=== PATIENT | female | born 1995 | race Hispanic/Latino ===

== ENCOUNTER 2019-03-13 23:47 | Emergency (ER) | payer OTHER ==
[2019-03-14 01:01] LABS: Urine Bacteria <20 /HPF (<20); Urine Culture Reflex Order NOT NEEDED; Urine RBC NONE SEEN /HPF (NONE SEEN)
[2019-03-14 01:01] LABS: Urine Blood NEGATIVE (NEG); Urine Glucose NEGATIVE (NEG); Urine Specific Gravity >1.030 (1.005-1.030)
[2019-03-14 01:02] LABS: Urine Protein NEGATIVE (NEG); Urine pH 5.5 (5.0-7.0)
[2019-03-14] MEDS ORDERED: KETOROLAC 30 MG/ML INJ ONE (01:07)
--- NOTE | 2019-03-14 03:24 | ER ---
Nurse's Notes [facility] Name: Yuki Lopez Age: 23 yrs Sex: Female : 1995 Arrival Date: 03/13/2019 Time: 23:50 Bed 5 Private MD: Diagnosis: Other abdominal pain-R FLANK PAIN Presentation: 03/13 23:59 Presenting complaint: Patient states: R flank pain radiating to right groin that began lp1 suddenly about an hour and a half ago; States pain comes and goes, nausea; Denies any pain with urination. Transition of care: patient was not received from another setting of care. Onset of symptoms was March 13, 2019 at 22:30. Risk Assessment: Do you want to hurt yourself or someone else? Patient reports no desire to harm self or others. Initial Sepsis Screen: Does the patient meet any 2 criteria? No. Patient's initial sepsis screen is negative. Does the patient have a suspected source of infection? No. Patient's initial sepsis screen is negative. Care prior to arrival: None. 23:59 Method Of Arrival: Ambulatory lp1 23:59 Acuity: ARISTEO 3 lp1 [employer]: 03/14 00:01 LMP 01/20/2019 lp1 Historical: - Allergies: 00:02 No Known Allergies; lp1 - Home Meds: 00:02 None [Active]; lp1 - PMHx: 00:02 Anemia; lp1 - PSHx: 00:02 ; lp1 - Immunization history:: Adult Immunizations up to date. - Social history:: Smoking status: Patient/guardian denies using tobacco. - Ebola Screening: : No symptoms or risks identified at this time. Screenin:03 Abuse screen: Denies threats or abuse. Denies injuries from another. Nutritional lp1 screening: No deficits noted. Tuberculosis screening: No symptoms or risk factors identified. Fall Risk None identified. Assessment: 00:02 General: Appears in no apparent distress. Behavior is calm. Pain: Complains of pain in lp1 right low back Pain radiates to groin and right femoral area Pain currently is 7 out of 10 on a pain scale. Quality of pain is described as sharp. Neuro: Level of Consciousness is awake, alert, obeys commands, Oriented to person, place, time, situation. Cardiovascular: Patient's skin is warm and dry. Respiratory: Respiratory effort is even, unlabored. GI: Abdomen is non-distended, Bowel sounds present X 4 quads. Abd is soft and non tender X 4 quads. : Reports pain in right flank(s). EENT: No signs and/or symptoms were reported regarding the EENT system. Derm: Skin is pink, warm \T\ dry. Musculoskeletal: No deficits noted. 01:00 Reassessment: Patient returned from CT at this time. lp1 02:00 Reassessment: Patient appears in no apparent distress at this time. Patient and/or lp1 family updated on plan of care and expected duration. Pain level reassessed. Patient is alert, oriented x 3, equal unlabored respirations, skin warm/dry/pink. Vital Signs: 00:01 BP 115 / 86; Pulse 116; Resp 18; Temp 97.9(O); Pulse Ox 99% on R/A; Weight 108.86 kg; lp1 Height 5 ft. 8 in. (172.72 cm); Pain 7/10; 01:11 BP 102 / 67; Pulse 107; Resp 18; Pulse Ox 100% on R/A; lp1 02:30 BP 100 / 68; Pulse 94; Resp 16; Pulse Ox 100% on R/A; lp1 00:01 Body Mass Index 36.49 (108.86 kg, 172.72 cm) lp1 ED Course: 03/13 23:50 Patient arrived in ED. cl3 23:59 Margo Saavedra, RN is Primary Nurse. lp1 03/14 00:01 Triage completed. lp1 00:01 Arm band placed on left wrist. lp1 00:04 Patient has correct armband on for positive identification. lp1 00:12 Olman Shipley MD is Attending Physician. 03:28 No provider procedures requiring assistance completed. Patient did not have IV access lp1 during this emergency room visit. 09:05 CT Stone Protocol In Process Unspecified. EDMS Administered Medications: 01:10 Drug: TORadol 30 mg Route: IM; Site: right deltoid; lp1 02:00 Follow up: Response: Pain is decreased lp1 Outcome: 03:22 Discharge ordered by . gs 03:28 Discharged to home ambulatory, with significant other. lp1 03:28 Condition: good 03:28 Discharge instructions given to patient, Instructed on discharge instructions, follow up and referral plans. Demonstrated understanding of instructions, follow-up care. 03:30 Patient left the ED. lp1 Signatures: Dispatcher [employer] Margo Goodrich RN RN lp1 Olman Shipley MD MD gs Lewis, Charde cl3
--- NOTE | 2019-03-14 03:25 | EDPHYS ---
Physician Documentation [facility] Name: Yuki Lopez Age: 23 yrs Sex: Female : 1995 Arrival Date: 03/13/2019 Time: 23:50 Bed 5 Private MD: ED Physician Olman Shipley HPI: 03/14 03:08 This 23 yrs old Female presents to ER via Ambulatory with complaints of gs Abdominal Pain. 03:08 The patient complains of pain in the right low back. The pain radiates to the right gs lower quadrant. Onset: The symptoms/episode began/occurred gradually, 2 day(s) ago. Modifying factors: The symptoms are alleviated by nothing. the symptoms are aggravated by nothing. Associated signs and symptoms: Pertinent negatives: fever, hematuria, pain radiating to the lower extremities, vomiting. Associated signs and symptoms: Pertinent negatives: dysuria. Severity of pain: At its worst the pain was moderate in the emergency department the pain is unchanged. The patient has experienced similar episodes in the past, a few times. 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 - Social history:: Smoking status: Patient/guardian denies using tobacco. - Ebola Screening: : No symptoms or risks identified at this time. ROS: 03:08 All other systems are negative. gs Exam: 03:08 Head/Face: Normocephalic, atraumatic. Eyes: Pupils equal round and reactive to light, gs extra-ocular motions intact. Lids and lashes normal. Conjunctiva and sclera are non-icteric and not injected. Cornea within normal limits. Periorbital areas with no swelling, redness, or edema. ENT: Nares patent. No nasal discharge, no septal abnormalities noted. Tympanic membranes are normal and external auditory canals are clear. Oropharynx with no redness, swelling, or masses, exudates, or evidence of obstruction, uvula midline. Mucous membranes moist. Neck: Trachea midline, no thyromegaly or masses palpated, and no cervical lymphadenopathy. Supple, full range of motion without nuchal rigidity, or vertebral point tenderness. No Meningismus. Chest/axilla: Normal chest wall appearance and motion. Nontender with no deformity. No lesions are appreciated. Cardiovascular: Regular rate and rhythm with a normal S1 and S2. No gallops, murmurs, or rubs. Normal PMI, no JVD. No pulse deficits. Respiratory: Lungs have equal breath sounds bilaterally, clear to auscultation and percussion. No rales, rhonchi or wheezes noted. No increased work of breathing, no retractions or nasal flaring. Skin: Warm, dry with normal turgor. Normal color with no rashes, no lesions, and no evidence of cellulitis. MS/ Extremity: Pulses equal, no cyanosis. Neurovascular intact. Full, normal range of motion. Neuro: Awake and alert, GCS 15, oriented to person, place, time, and situation. Cranial nerves II-XII grossly intact. Motor strength 5/5 in all extremities. Sensory grossly intact. Cerebellar exam normal. Normal gait. 03:08 Constitutional: The patient appears alert, awake. 03:08 Abdomen/GI: Palpation: soft, in all quadrants, mild abdominal tenderness, in the right lower quadrant. 03:08 Back: CVA tenderness, is noted on the right. Vital Signs: 00:01 BP 115 / 86; Pulse 116; Resp 18; Temp 97.9(O); Pulse Ox 99% on R/A; Weight 108.86 kg; lp1 Height 5 ft. 8 in. (172.72 cm); Pain 7/10; 01:11 BP 102 / 67; Pulse 107; Resp 18; Pulse Ox 100% on R/A; lp1 02:30 BP 100 / 68; Pulse 94; Resp 16; Pulse Ox 100% on R/A; lp1 00:01 Body Mass Index 36.49 (108.86 kg, 172.72 cm) lp1 MDM: 00:16 Patient medically screened. 03:08 Differential diagnosis: nephrolithiasis, pyelonephritis, UTI, SPRAIN. Data reviewed: vital signs, nurses notes, lab test result(s). Data reviewed: radiologic studies. Counseling: I had a detailed discussion with the patient and/or guardian regarding: the historical points, exam findings, and any diagnostic results supporting the discharge/admit diagnosis, lab results, radiology results, the need for outpatient follow up. Response to treatment: the patient's symptoms have markedly improved after treatment, the patient's condition has returned to base line. 03/14 00:12 Order name: Urine Microscopic Only 03/14 00:25 Order name: Urine Dipstick--Ancillary (enter results) page hospital 03/14 00:25 Order name: Urine --Ancillary (enter results) page hospital 03/14 01:02 Order name: Urine Microscopic Only; Complete Time: 03:16 EDUT 03/14 01:06 Order name: Urine --Ancillary; Complete Time: 03:16 EDUT 03/14 01:07 Order name: Urine Dipstick-Ancillary; Complete Time: 03:16 EDUT 03/14 00:12 Order name: Urine Test (obtain specimen); Complete Time: 00:24 03/14 00:12 Order name: Urine Dipstick-Ancillary (obtain specimen); Complete Time: 00:24 03/14 00:38 Order name: CT Stone Protocol Administered Medications: 01:10 Drug: TORadol 30 mg Route: IM; Site: right deltoid; lp1 02:00 Follow up: Response: Pain is decreased lp1 Disposition: 03/14/19 03:22 Discharged to Home. Impression: Other abdominal pain - R FLANK PAIN. - Condition is Stable. - Discharge Instructions: Flank Pain, Aspc-ro-Nhpi. - Family Work Release, Medication Reconciliation Form, Thank You Letter, Antibiotic Education, Prescription Opioid Use form. - Follow up: Private Physician; When: 2 - 3 days; Reason: Re-evaluation by your physician. Signatures: [facility] Margo Goodrich RN RN lp1 Olman Shipley MD MD gs Corrections: (The following items were deleted from the chart) 03:30 03:22 03/14/2019 03:22 Discharged to Home. Impression: Other abdominal pain - R FLANK lp1 PAIN. Condition is Stable. Forms are Medication Reconciliation Form, Thank You Letter, Antibiotic Education, Prescription Opioid Use. Follow up: Private Physician; When: 2 - 3 days; Reason: Re-evaluation by your physician.
--- NOTE | 2019-03-14 10:31 | RAD REPORT ---
EXAM DESCRIPTION: CT Abdomen and Pelvis Without Intravenous Contrast CLINICAL HISTORY: The patient is 23 years old and is Female; FLANK PAIN TECHNIQUE: Axial computed tomography images of the abdomen and pelvis without intravenous contrast. Sagittal and coronal reformatted images were created and reviewed. This CT exam was performed usi ng one or more of the following dose reduction techniques: automated exposure control, adjustment o f the mA and/or kV according to patient size, and/or use of iterative reconstruction technique. COMPARISON: No relevant prior studies available. FINDINGS: LUNG BASES: Unremarkable. No mass. No consolidation. ABDOMEN: LIVER: Homogeneous without focal mass. GALLBLADDER AND BILE DUCTS: The gallbladder is contracted. PANCREAS: Unremarkable. No ductal dilation. SPLEEN: Unremarkable. ADRENALS: Unremarkable. No mass. KIDNEYS AND URETERS: No obstructing stones. No hydronephrosis. STOMACH AND BOWEL: The stomach is distended with food contents. The small bowel is normal in mario iber. A moderate amount of stool is present throughout the colon. There is no mucosal thickening or e vidence of bowel obstruction. PELVIS: APPENDIX: The appendix is normal in caliber without surrounding inflammation. BLADDER: The bladder is nearly empty. No stones. REPRODUCTIVE: A bilobed left ovarian cyst measuring 4.3 cm is present. The uterus is unremarkabl e. A 1.9 cm right ovarian cyst is present. ABDOMEN and PELVIS: INTRAPERITONEAL SPACE: Unremarkable. No free air. No significant fluid collection. BONES/JOINTS: No acute fracture. SOFT TISSUES: The soft tissues are normal. VASCULATURE: Unremarkable. No abdominal aortic aneurysm. LYMPH NODES: Unremarkable. No enlarged lymph nodes. IMPRESSION: 1. No acute findings on this noncontrasted CT of the abdomen and pelvis to explain the p atient's symptoms. 2. Bilobed left ovarian cyst. Recommend prompt follow-up with pelvic US. Reference: J Am Yovanny Radiol 2013;[id number] Electronically signed by: Jess Nazario MD 03/14/2019 1:15 AM CDT Due to temporary technical issues with the PACS/Fluency reporting system, reports are being signed by the in house radiologist as a courtesy to ensure prompt reporting. The interpreting radiologist is f jaminly responsible for the content of the report.
== END 2019-03-14 03:30 | disposition home or self-care (01) ==
LOC: ER 23:47
DX: R10.9 Unspecified abdominal pain (principal)
CPT/HCPCS: 74176; 76377; 81003; 81015; 81025; 96372; 99283